=== PATIENT | female | born 1950 | race Caucasian/White ===

== ENCOUNTER 2023-05-23 17:31 | Inpatient (IN) ==
[2023-05-23] MEDS ORDERED: Rocuronium 50 mg VIAL 10 mg/ml 5 ml VIAL (50 mg) ONE (17:38)
[2023-05-23] MEDS ORDERED: Succinylcholine 200 mg VIAL 20 mg/ml 10 ml VIAL (200 mg) ONE (17:38)
[2023-05-23] MEDS ORDERED: LORazepam 2 mg VIAL 1 ml ONE (17:39)
[2023-05-23 17:53] LABS: Venous Bicarbonate HCO3 9.5 mmol/L (24-28)
[2023-05-23] MEDS ORDERED: LORazepam 2 mg VIAL 1 ml IV PUSH ONE (18:01)
[2023-05-23 18:02] LABS: Hemoglobin 16.1 g/dL (11.5-14.3); Mean Corpuscular Hemoglobin 28.6 pg (27-33); Mean Corpuscular Hgb Conc 30.4 g/dL (31-36); Mean Platelet Volume 9.5 fL (7.5-11.2); Platelet Count 232 10^3/uL (150-450); Red Blood Count 5.64 10^6/uL (3.63-4.92); Red Cell Distribution Width 15.4 % (12-17); White Blood Count 22.8 10^3/uL (3.8-11.8)
[2023-05-23] MEDS ORDERED: Lactated Ringers 1000 ml BAG 1,000 ML IV ONE (18:06)
[2023-05-23] MEDS ORDERED: Piperacillin/Tazobac 3.375 BAG 3.375 GM/100 ML BAG IV ONE (18:19)
[2023-05-23 18:21] LABS: Urine Appearance Cloudy; Urine Bilirubin Negative (Negative); Urine Blood 1+ (Negative); Urine Color Yellow; Urine Glucose 3+(>=500 mg/dL) (Negative); Urine Ketones 2+ (Negative); Urine Nitrite Negative (Negative); Urine Protein 1+(30 mg/dL) (Negative); Urine Specific Gravity 1.025 (1.002-1.030); Urine Urobilinogen Negative (Negative)
[2023-05-23 18:28] LABS: Urine Amorphous Crystals Present /HPF (Absent); Urine Bacteria Absent (Absent); Urine Red Blood Cell Trace(0-2/hpf) (Absent); Urine Squamous Epithelial Cell Present (Absent); Urine White Blood Cell Trace(0-5/hpf) (Absent)
[2023-05-23] MEDS: Dexmedetomidine 1,000 MCG in NS 0.9% 250 ml 240 ML IV SCH (18:35)
[2023-05-23 18:43] LABS: Alcohol, S < 13 mg/dL (<13); Salicylate < 2.50 mg/dL (<30)
[2023-05-23 18:52] LABS: ABS Basophils 0.1 10^3/uL (0.0-0.1); ABS Lymphocytes 1.2 10^3/uL (1.0-4.8); ABS Monocytes 1.4 10^3/uL (0.0-0.9); ABS Neutrophils 20.1 10^3/uL (1.5-7.6); ABS Nucleated RBC 0.02 10^3/ul; Eosinophil % 0.1 %; Lymphocyte % 5.1 %; Nucleated Red Blood Cells % 0.1 %/100WBC (0.0-0.8)
[2023-05-23 18:59] LABS: PCO2 Arterial 22 mmHg (35-45); PO2 Arterial 152 mmHg (80-100)
[2023-05-23 18:59] LABS: TSH Ultra Thyroid Stim Horm 3.17 mcIU/mL (0.34-5.60)
[2023-05-23 19:46] LABS: Urine Benzodiazepine Screen None Detected (None Detect); Urine Cannabinoids Screen None Detected (None Detect); Urine Opiates Screen None Detected (None Detect)
[2023-05-23 20:01] LABS: ALT 179 U/L (7-52); Albumin 4.2 g/dL (3.2-5.2); Albumin/Globulin Ratio 1.3 (1-3); Alkaline Phosphatase 176 U/L (35-149); Blood Urea Nitrogen 30 mg/dL (6-24); C Reactive Protein 59.55 mg/L (<8.01); Calcium 10.4 mg/dL (8.6-10.3); Chloride 99 mmol/L (101-111); Creatine Kinase 61 U/L (10-223); Creatinine, Serum 1.53 mg/dL (0.51-0.95); Globulin 3.3 g/dL (2-4); Sodium 143 mmol/L (135-145); Total Bilirubin 0.6 mg/dL (0.2-1.0); Total Protein 7.5 g/dL (6.4-8.9); eGFR CKD-EPI 36.4 (>60)
[2023-05-23 20:02] LABS: High Sens Troponin Baseline 298 pg/mL (<15)
[2023-05-23 20:05] LABS: Anion Gap 34 mmol/L (2-16); CO2 Carbon Dioxide 10 mmol/L (22-32); Glucose 742 mg/dL (70-100)
[2023-05-23] MEDS ORDERED: NORMOSOL-R pH 7.4 1000 mL BAG 1,000 ML IV ONE (20:07)
[2023-05-23] MEDS ORDERED: Iodixanol (CONTRAST) 320 MG/ML 100 ML SDV IV ONE (20:13)
[2023-05-23] MEDS ORDERED: Dextrose 50% Syringe 50 ml 25 GM/50 ML SYRINGE IV PUSH PRN (20:38)
[2023-05-23] MEDS ORDERED: Acetaminophen IV 1 GM/100ML 1,000 MG/100 ML BAG IV ONE (20:40)
[2023-05-23] MEDS ORDERED: Ondansetron 4 mg VIAL 2 MG/ML 2 ml VIAL IV PRN (20:44)
[2023-05-23 21:00] LABS: Magnesium 2.3 mg/dL (1.9-2.7); Potassium Redraw 5.2 mmol/L (3.5-5.0)
[2023-05-23] MEDS ORDERED: Insulin Infusion 100unit/100mL 100 UNIT/100 ML BAG IV SCH (21:00)
[2023-05-23] MEDS ORDERED: Enoxaparin 40 MG/0.4 ML SYR SUBCUT SCH (21:00)
[2023-05-23 21:24] LABS: High Sensitivity Troponin 1 Hr 471 pg/mL (<15)
[2023-05-23] MEDS: NORMOSOL-R pH 7.4 1000 mL BAG 1,000 ML IV SCH (21:33)
[2023-05-23] MEDS: Norepinephrine 4 MG/250mL D5W 4,000 MCG/250 ML BAG IV SCH (23:05)
[2023-05-23] MEDS ORDERED: Zosyn per Pharmacy NOTE FOLLOW UP SCH (23:45)
[2023-05-24 00:08] LABS: Osmolality Serum 352 mOsm/kg (275-295)
[2023-05-24 00:25] LABS: PCO2 Arterial 27 mmHg (35-45); PO2 Arterial 80 mmHg (80-100)
[2023-05-24] MEDS ORDERED: LORazepam 2 mg VIAL 1 ml IV PUSH ONE (00:43)
[2023-05-24] MEDS ORDERED: Lorazepam PYXIS KEY PRN (00:43)
[2023-05-24] MEDS ORDERED: Heparin 5000 UNITS/ML 1 mL VIAL IV SCH (01:00)
[2023-05-24] MEDS ORDERED: Heparin DRIP 25,000 UNITS BAG 25,000 UNITS/250 ML BAG IV SCH (01:00)
[2023-05-24] MEDS ORDERED: ZOSYN 3.375 GM x ONE DOSE over 30 miuntes IV (01:00)
[2023-05-24] MEDS ORDERED: NORMOSOL-R pH 7.4 1000 mL BAG 1,000 ML IV ONE (01:07)
[2023-05-24 01:18] LABS: ABS Lymphocytes 1.2 10^3/uL (1.0-4.8); ABS Monocytes 1.5 10^3/uL (0.0-0.9); ABS Neutrophils 15.5 10^3/uL (1.5-7.6); ABS Nucleated RBC 0.02 10^3/ul; Hematocrit 41.6 % (35-45); Hemoglobin 13.8 g/dL (11.5-14.3); Lymphocyte % 6.6 %; Mean Corpuscular Hemoglobin 28.4 pg (27-33); Mean Corpuscular Hgb Conc 33.2 g/dL (31-36); Mean Corpuscular Volume 85.7 fL (80-97); Mean Platelet Volume 8.8 fL (7.5-11.2); Nucleated Red Blood Cells % 0.1 %/100WBC (0.0-0.8); Platelet Count 172 10^3/uL (150-450); Red Blood Count 4.86 10^6/uL (3.63-4.92); Red Cell Distribution Width 13.8 % (12-17); White Blood Count 18.3 10^3/uL (3.8-11.8)
[2023-05-24 01:28] LABS: Creatinine, Serum 1.73 mg/dL (0.51-0.95); eGFR CKD-EPI 31.2 (>60)
[2023-05-24 01:40] LABS: Calcium 9.1 mg/dL (8.6-10.3); Creatinine, Serum 1.76 mg/dL (0.51-0.95); Phosphorus 1.8 mg/dL (2.5-5.0); Potassium 3.8 mmol/L (3.5-5.0); eGFR CKD-EPI 30.6 (>60)
[2023-05-24] MEDS ORDERED: Potassium Phosphate IV 30 MMOL in NS 0.9% 250 ml 250 ML IVPB ONE (01:54)
[2023-05-24 02:07] LABS: CSF Glucose 324 mg/dL (40-70)
[2023-05-24 02:27] LABS: Glucose Confirmatory 468 mg/dL (70-100)
[2023-05-24 02:52] LABS: Body Fluid Source Cerebral Spinal
[2023-05-24 02:53] LABS: Body Fluid Appearance Clear; Body Fluid Color Colorless; CSF Tube # 4
[2023-05-24] MEDS: NORMOSOL-R pH 7.4 1000 mL BAG 1,000 ML IV SCH (02:57)
[2023-05-24 03:09] LABS: CSF Body Fluid WBC 2 /mcL
[2023-05-24 03:35] LABS: Activated Partial Thrombo Time 30.7 seconds (26.0-38.0); INR 1.25 (0.83-1.13)
[2023-05-24] MEDS: Acetaminophen IV 1 GM/100ML 1,000 MG/100 ML BAG IV SCH ×4 (03:50→20:53)
[2023-05-24] MEDS: Heparin DRIP 25,000 UNITS BAG 25,000 UNITS/250 ML BAG IV SCH (03:56)
[2023-05-24 04:32] LABS: Body Fluid Mono 46 %; Body Fluid Total Cells Counted 174
[2023-05-24] MEDS ORDERED: ZOSYN 3.375 GM Q8H per EXTENDED INFUSION IV SCH ×2 (05:00)
[2023-05-24 05:05] LABS: Schistocytes ABSENT
[2023-05-24 05:10] LABS: Hematocrit 40.8 % (35-45); Hemoglobin 13.4 g/dL (11.5-14.3); Mean Corpuscular Hemoglobin 28.2 pg (27-33); Mean Corpuscular Volume 85.5 fL (80-97); Mean Platelet Volume 8.5 fL (7.5-11.2); Platelet Count 155 10^3/uL (150-450); Red Blood Count 4.77 10^6/uL (3.63-4.92); Red Cell Distribution Width 13.5 % (12-17); White Blood Count 16.8 10^3/uL (3.8-11.8)
[2023-05-24 05:17] LABS: PCO2 Arterial 28 mmHg (35-45); PO2 Arterial 75 mmHg (80-100)
[2023-05-24] MEDS: ZOSYN 3.375 GM Q8H per EXTENDED INFUSION IV SCH ×3 (05:26→22:17)
[2023-05-24 05:28] LABS: Creatinine, Serum 1.62 mg/dL (0.51-0.95); Magnesium 2.1 mg/dL (1.9-2.7); Potassium 3.9 mmol/L (3.5-5.0); eGFR CKD-EPI 33.8 (>60)
[2023-05-24] MEDS ORDERED: KCL 20 MEQ/100 ML IVPREMIX 20 MEQ/100 ML BAG IV ONE (05:49)
[2023-05-24] MEDS ORDERED: D5W 1/2 NS 1000 ml BAG 1,000 ML IV ONE (05:55)
[2023-05-24] MEDS ORDERED: D5W 1/2 NS 1000 ml BAG 1,000 ML IV SCH (06:00)
[2023-05-24] MEDS: Insulin Infusion 100unit/100mL 100 UNIT/100 ML BAG IV SCH ×2 (06:08→08:59)
[2023-05-24] MEDS: Dexmedetomidine 1,000 MCG in NS 0.9% 250 ml 240 ML IV SCH ×3 (06:17→22:19)
[2023-05-24] MEDS ORDERED: Vancomycin 1,000 MG in NS 0.9% 250 ml 250 ML IVPB ONE (07:48)
[2023-05-24 08:00] LABS: Platelet Count 172 10^3/ul (150-450)
[2023-05-24] MEDS ORDERED: Vancomycin per Pharmacy 1 EA NOTE FOLLOW UP SCH (08:00)
[2023-05-24 08:09] LABS: ABS Basophils 0.1 10^3/uL (0.0-0.1); ABS Lymphocytes 1.6 10^3/uL (1.0-4.8); ABS Monocytes 1.6 10^3/uL (0.0-0.9); ABS Neutrophils 13.5 10^3/uL (1.5-7.6); ABS Nucleated RBC 0.01 10^3/ul; Lymphocyte % 9.8 %; Nucleated Red Blood Cells % 0.1 %/100WBC (0.0-0.8)
[2023-05-24] MEDS: Norepinephrine 4 MG/250mL D5W 4,000 MCG/250 ML BAG IV SCH ×3 (08:29→22:00)
[2023-05-24] MEDS: Vancomycin 1,500 MG in NS 0.9% 250 ml 250 ML IVPB ONE ×2 (08:38→09:08)
[2023-05-24] MEDS ORDERED: NORMOSOL-R pH 7.4 1000 mL BAG 1,000 ML IV SCH (09:00)
[2023-05-24 10:54] LABS: Creatinine, Serum 1.53 mg/dL (0.51-0.95); Potassium 4.6 mmol/L (3.5-5.0); eGFR CKD-EPI 36.2 (>60)
[2023-05-24 10:55] LABS: Calcium 8.6 mg/dL (8.6-10.3)
[2023-05-24 12:59] LABS: Calcium 8.6 mg/dL (8.6-10.3); Creatinine, Serum 1.62 mg/dL (0.51-0.95); Potassium 3.7 mmol/L (3.5-5.0); eGFR CKD-EPI 33.8 (>60)
[2023-05-24] MEDS: D5LR 1000 ml BAG 1,000 ML IV SCH ×2 (13:33→22:15)
[2023-05-24] MEDS ORDERED: D5LR 1000 ml BAG 1,000 ML IV ONE (15:02)
[2023-05-24] MEDS ORDERED: Lactated Ringers 1000 ml BAG 1,000 ML IV ONE (15:16)
[2023-05-24] MEDS ORDERED: Insulin Infusion 100unit/100mL 100 UNIT/100 ML BAG IV SCH (15:16)
[2023-05-24 16:31] LABS: Calcium (PTH Intact) 8.7 mg/dL (8.6-10.3)
[2023-05-24 16:45] LABS: Calcium 8.8 mg/dL (8.6-10.3); Creatinine, Serum 1.58 mg/dL (0.51-0.95); Magnesium 1.8 mg/dL (1.9-2.7); Potassium 3.8 mmol/L (3.5-5.0); eGFR CKD-EPI 34.8 (>60)
[2023-05-24 17:26] LABS: Calcium 8.8 mg/dL (8.6-10.3); Creatinine, Serum 1.63 mg/dL (0.51-0.95); Magnesium 1.9 mg/dL (1.9-2.7); eGFR CKD-EPI 33.5 (>60)
[2023-05-24 17:34] LABS: Free T4 1.16 ng/dL (0.61-1.12)
[2023-05-24 17:59] LABS: Resp Rate 19
[2023-05-24 18:02] LABS: PCO2 Arterial 28 mmHg (35-45); PO2 Arterial 62 mmHg (80-100)
[2023-05-24] MEDS ORDERED: CALCIUM GLUCONATE 1GM/50ML NS 1 GM/50 ML BAG IV ONE (19:19)
[2023-05-24] MEDS ORDERED: Haloperidol 5 mg/ml SDV IV/IM 5 MG/ML AMP IV SLOW PU PRN (19:34)
[2023-05-24] MEDS ORDERED: Haloperidol 5 mg/ml SDV IV/IM 5 MG/ML AMP ONE (19:38)
[2023-05-24 21:13] LABS: Calcium 8.8 mg/dL (8.6-10.3); Creatinine, Serum 1.51 mg/dL (0.51-0.95); Magnesium 1.7 mg/dL (1.9-2.7); Potassium 3.6 mmol/L (3.5-5.0); eGFR CKD-EPI 36.7 (>60)
[2023-05-24] MEDS ORDERED: fentaNYL 100 mcg/2 ml 50 MCG/ML VIAL IV SLOW PU ONE (22:10)
[2023-05-24] MEDS ORDERED: fentaNYL 100 mcg/2 ml 50 MCG/ML VIAL ONE (22:14)
[2023-05-24] MEDS: Insulin GLARGINE 100 un/ml 10 ml VIAL SUBCUT SCH (22:43)
[2023-05-24 23:12] LABS: PCO2 Arterial 30 mmHg (35-45); PO2 Arterial 83 mmHg (80-100)
[2023-05-24] MEDS ORDERED: Dextrose 50% Syringe 50 ml 25 GM/50 ML SYRINGE IV PUSH PRN (23:13)
[2023-05-25] MEDS: Heparin DRIP 25,000 UNITS BAG 25,000 UNITS/250 ML BAG IV SCH (01:26)
[2023-05-25] MEDS ORDERED: Ketamine HCL 50 mg/ml 10 ml VIAL (500 MG) ONE (01:58)
[2023-05-25] MEDS ORDERED: Rocuronium 50 mg VIAL 10 mg/ml 5 ml VIAL (50 mg) ONE ×2 (01:58→02:12)
[2023-05-25] MEDS ORDERED: Etomidate 40 mg/20 ml (2 MG/ML) 20 ml VIAL (40 mg) ONE (02:02)
[2023-05-25 02:11] LABS: PCO2 Arterial 28 mmHg (35-45); PO2 Arterial 131 mmHg (80-100)
[2023-05-25] MEDS ORDERED: Midazolam PREMIXBAG 1 MG/ML NS 100 ML IV ONE (02:24)
[2023-05-25] MEDS ORDERED: Rocuronium 50 mg VIAL 10 mg/ml 5 ml VIAL (50 mg) IV ONE (02:33)
[2023-05-25] MEDS ORDERED: Etomidate 20 mg/10 ml 2 MG/ML 10 ml VIAL IV ONE (02:33)
[2023-05-25] MEDS ORDERED: Midazolam PREMIXBAG 1 MG/ML NS 100 ML IV SCH ×2 (02:35→13:14)
[2023-05-25] MEDS: Pantoprazole VIAL 40 MG VIAL IV SCH (02:56)
[2023-05-25] MEDS: Acetaminophen IV 1 GM/100ML 1,000 MG/100 ML BAG IV SCH (02:58)
[2023-05-25] MEDS ORDERED: fentaNYL INFUSION 50 mcg/mL VL 2,500 MCG/50 ML VIAL IV SCH ×2 (03:00→13:14)
[2023-05-25 03:46] LABS: PCO2 Arterial 35 mmHg (35-45); PO2 Arterial 121 mmHg (80-100)
[2023-05-25 04:07] LABS: Hematocrit 44.1 % (35-45); Hemoglobin 14.1 g/dL (11.5-14.3); Mean Corpuscular Hemoglobin 28.4 pg (27-33); Mean Corpuscular Volume 88.6 fL (80-97); Mean Platelet Volume 9.4 fL (7.5-11.2); Platelet Count 163 10^3/uL (150-450); Red Blood Count 4.98 10^6/uL (3.63-4.92); Red Cell Distribution Width 14.8 % (12-17); White Blood Count 24.3 10^3/uL (3.8-11.8)
[2023-05-25 04:33] LABS: Calcium 9.6 mg/dL (8.6-10.3); Creatinine, Serum 1.83 mg/dL (0.51-0.95); Potassium 4.2 mmol/L (3.5-5.0); eGFR CKD-EPI 29.2 (>60)
[2023-05-25 04:45] LABS: Albumin 3.3 g/dL (3.2-5.2); Albumin/Globulin Ratio 1.4 (1-3); Globulin 2.4 g/dL (2-4); Magnesium 1.9 mg/dL (1.9-2.7); Phosphorus 6.4 mg/dL (2.5-5.0); Total Bilirubin 1.7 mg/dL (0.2-1.0); Total Protein 5.7 g/dL (6.4-8.9)
[2023-05-25 04:55] LABS: ABS Basophils 0.1 10^3/uL (0.0-0.1); ABS Monocytes 2.7 10^3/uL (0.0-0.9); ABS Neutrophils 19.4 10^3/uL (1.5-7.6); ABS Nucleated RBC 0.01 10^3/ul; Eosinophil % 0.1 %; Lymphocyte % 8.4 %
[2023-05-25] MEDS: Norepinephrine 4 MG/250mL D5W 4,000 MCG/250 ML BAG IV SCH ×3 (05:04→20:26)
[2023-05-25] MEDS: Hydrocortisone INJ 100 MG/2ML 2 ML VIAL IV SCH ×4 (05:58→23:19)
[2023-05-25] MEDS: ZOSYN 3.375 GM Q8H per EXTENDED INFUSION IV SCH ×3 (05:59→22:01)
[2023-05-25] MEDS: Vancomycin 1000 MG in NS 0.9% 250 ML IVPB SCH (08:10)
[2023-05-25] MEDS ORDERED: Propofol 10 mg/ml 100 ML BTL 1,000 MG/100 ML BTL IV SCH (10:00)
[2023-05-25] MEDS ORDERED: Norepinephrine 4 MG/250mL D5W 4,000 MCG/250 ML BAG IV ONE (10:01)
[2023-05-25] MEDS ORDERED: Acetaminophen IV 1 GM/100ML 1,000 MG/100 ML BAG IV ONE (11:21)
[2023-05-25 12:35] LABS: Resp Rate 20
[2023-05-25 12:37] LABS: PCO2 Arterial 28 mmHg (35-45); PO2 Arterial 76 mmHg (80-100)
[2023-05-25] MEDS: Propofol 10 mg/ml 100 ML BTL 1,000 MG/100 ML BTL IV SCH (13:51)
[2023-05-25 14:11] LABS: Anion Gap 11 mmol/L (2-16); Blood Urea Nitrogen 37 mg/dL (6-24); CO2 Carbon Dioxide 20 mmol/L (22-32); Calcium 8.5 mg/dL (8.6-10.3); Chloride 109 mmol/L (101-111); Creatinine, Serum 2.15 mg/dL (0.51-0.95); Glucose 282 mg/dL (70-100); Sodium 140 mmol/L (135-145)
[2023-05-25 14:12] LABS: Albumin 2.9 g/dL (3.2-5.2); Albumin/Globulin Ratio 1.3 (1-3); Alkaline Phosphatase 126 U/L (35-149); Globulin 2.2 g/dL (2-4); Total Bilirubin 1.2 mg/dL (0.2-1.0); Total Protein 5.1 g/dL (6.4-8.9)
[2023-05-25] MEDS: Chlorhexidine MOUTHWASH 0.12% 15 ML UDC SWISH SPIT SCH ×3 (14:17→22:03)
[2023-05-25 16:02] LABS: ALT 2565 U/L (7-52)
[2023-05-25 16:50] LABS: Potassium Redraw 4.5 mmol/L (3.5-5.0)
[2023-05-25 17:32] LABS: Folate 8.11 ng/mL (5.90-24.80)
[2023-05-25 17:33] LABS: Vitamin B12 > 1450 pg/mL (180-914)
[2023-05-25 19:13] LABS: HSV 1 PCR, CSF Negative (Negative); HSV 2 PCR, CSF Negative (Negative)
[2023-05-25] MEDS: Insulin GLARGINE 100 un/ml 10 ml VIAL SUBCUT SCH (20:34)
[2023-05-25 22:27] LABS: Hematocrit 40.4 % (35-45); Hemoglobin 13.1 g/dL (11.5-14.3)
[2023-05-26] MEDS: Chlorhexidine MOUTHWASH 0.12% 15 ML UDC SWISH SPIT SCH ×7 (02:17→23:42)
[2023-05-26] MEDS: Pantoprazole VIAL 40 MG VIAL IV SCH (02:21)
[2023-05-26 05:51] LABS: ABS Basophils 0.1 10^3/uL (0.0-0.1); ABS Lymphocytes 2.7 10^3/uL (1.0-4.8); ABS Neutrophils 16.4 10^3/uL (1.5-7.6); ABS Nucleated RBC 0.02 10^3/ul; Hematocrit 38.8 % (35-45); Hemoglobin 12.9 g/dL (11.5-14.3); Lymphocyte % 13.2 %; Mean Corpuscular Hemoglobin 28.3 pg (27-33); Mean Corpuscular Hgb Conc 33.1 g/dL (31-36); Mean Corpuscular Volume 85.3 fL (80-97); Mean Platelet Volume 9.8 fL (7.5-11.2); Nucleated Red Blood Cells % 0.1 %/100WBC (0.0-0.8); Platelet Count 118 10^3/uL (150-450); Red Blood Count 4.55 10^6/uL (3.63-4.92); Red Cell Distribution Width 14.2 % (12-17); White Blood Count 20.2 10^3/uL (3.8-11.8)
[2023-05-26] MEDS: Hydrocortisone INJ 100 MG/2ML 2 ML VIAL IV SCH (06:03)
[2023-05-26 06:05] LABS: Calcium 8.7 mg/dL (8.6-10.3); Creatinine, Serum 2.22 mg/dL (0.51-0.95); Potassium 3.4 mmol/L (3.5-5.0); eGFR CKD-EPI 23.1 (>60)
[2023-05-26 06:07] LABS: Albumin 2.7 g/dL (3.2-5.2); Albumin/Globulin Ratio 1.2 (1-3); Globulin 2.2 g/dL (2-4); Magnesium 1.9 mg/dL (1.9-2.7); Phosphorus 3.7 mg/dL (2.5-5.0); Total Bilirubin 0.8 mg/dL (0.2-1.0); Total Protein 4.9 g/dL (6.4-8.9)
[2023-05-26] MEDS: ZOSYN 3.375 GM Q8H per EXTENDED INFUSION IV SCH ×3 (06:08→23:42)
[2023-05-26] MEDS ORDERED: Potassium Chloride LIQUID 20 MEQ/15 ML LIQUID PO ONE (06:31)
[2023-05-26] MEDS: Propofol 10 mg/ml 100 ML BTL 1,000 MG/100 ML BTL IV SCH ×2 (07:49→17:55)
[2023-05-26] MEDS ORDERED: Potassium Chloride LIQUID 20 MEQ/15 ML LIQUID NG TUBE ONE (08:00)
[2023-05-26] MEDS: Vancomycin 1000 MG in NS 0.9% 250 ML IVPB SCH (09:00)
[2023-05-26] MEDS: Heparin DRIP 25,000 UNITS BAG 25,000 UNITS/250 ML BAG IV SCH (10:11)
[2023-05-26 14:45] LABS: CSF VDRL Negative (Negative)
[2023-05-26] MEDS: fentaNYL 100 mcg/2 ml 50 MCG/ML VIAL IV SLOW PU PRN (21:06)
[2023-05-26] MEDS: Insulin GLARGINE 100 un/ml 10 ml VIAL SUBCUT SCH (22:26)
[2023-05-27] MEDS: fentaNYL 100 mcg/2 ml 50 MCG/ML VIAL IV SLOW PU PRN ×3 (01:48→19:30)
[2023-05-27] MEDS: Pantoprazole VIAL 40 MG VIAL IV SCH (01:48)
[2023-05-27 04:23] LABS: Hematocrit 34.2 % (35-45); Hemoglobin 11.6 g/dL (11.5-14.3); Mean Corpuscular Hemoglobin 28.7 pg (27-33); Mean Corpuscular Hgb Conc 33.8 g/dL (31-36); Mean Corpuscular Volume 84.8 fL (80-97); Red Blood Count 4.03 10^6/uL (3.63-4.92); Red Cell Distribution Width 14.2 % (12-17); White Blood Count 14.3 10^3/uL (3.8-11.8)
[2023-05-27 04:27] LABS: ABS Basophils 0.1 10^3/uL (0.0-0.1); ABS Eosinophils 0.1 10^3/uL (0.0-0.5); ABS Lymphocytes 2.7 10^3/uL (1.0-4.8); ABS Monocytes 0.9 10^3/uL (0.0-0.9); ABS Neutrophils 10.6 10^3/uL (1.5-7.6); ABS Nucleated RBC 0.05 10^3/ul; Eosinophil % 0.5 %; Lymphocyte % 18.7 %; Nucleated Red Blood Cells % 0.3 %/100WBC (0.0-0.8)
[2023-05-27 04:39] LABS: Calcium 8.4 mg/dL (8.6-10.3); Creatinine, Serum 1.86 mg/dL (0.51-0.95); eGFR CKD-EPI 28.6 (>60)
[2023-05-27 05:09] LABS: Mean Platelet Volume 9.5 fL (7.5-11.2); Platelet Count 95 10^3/uL (150-450)
[2023-05-27 05:19] LABS: Albumin 2.5 g/dL (3.2-5.2); Albumin/Globulin Ratio 1.2 (1-3); Globulin 2.1 g/dL (2-4); Magnesium 1.9 mg/dL (1.9-2.7); Phosphorus 2.9 mg/dL (2.5-5.0); Total Bilirubin 0.8 mg/dL (0.2-1.0); Total Protein 4.6 g/dL (6.4-8.9)
[2023-05-27] MEDS: Propofol 10 mg/ml 100 ML BTL 1,000 MG/100 ML BTL IV SCH (05:24)
[2023-05-27] MEDS: ZOSYN 3.375 GM Q8H per EXTENDED INFUSION IV SCH (06:52)
[2023-05-27] MEDS: Chlorhexidine MOUTHWASH 0.12% 15 ML UDC SWISH SPIT SCH ×6 (06:58→23:45)
[2023-05-27] MEDS: KCL 20 MEQ/100 ML IVPREMIX 20 MEQ/100 ML BAG IV SCH ×2 (07:13→09:59)
[2023-05-27] MEDS ORDERED: Vancomycin Trough Check NOTE FOLLOW UP ONE (08:30)
[2023-05-27] MEDS ORDERED: Furosemide 40 mg/4 ml IV VIAL IV SLOW PU ONE (10:00)
[2023-05-27] MEDS ORDERED: Midazolam 5 mg/5 ml VIAL 1 mg/ml 5 ml VIAL (5 mg) ONE (10:29)
[2023-05-27] MEDS ORDERED: fentaNYL 100 mcg/2 ml 50 MCG/ML VIAL ONE (10:29)
[2023-05-27] MEDS ORDERED: Naloxone 0.4 mg VIAL 0.4 mg/ml 1 ml VIAL ONE (10:30)
[2023-05-27] MEDS ORDERED: Flumazenil 0.5 mg/5 ml 0.1 MG/ML 5 ml VIAL ONE (10:30)
[2023-05-27] MEDS: Enoxaparin 100 MG/ML SYR SUBCUT SCH ×2 (11:08→21:57)
[2023-05-27] MEDS: cefTRIAXone 1 gm/50 mL D5W 1 GM/50 ML BAG IV SCH (12:38)
[2023-05-27] MEDS ORDERED: hydrALAZINE 20 mg/ml 1 ML Vial IV IV SLOW PU PRN (14:35)
[2023-05-27 16:17] LABS: Calcium 8.9 mg/dL (8.6-10.3); Creatinine, Serum 1.76 mg/dL (0.51-0.95); Magnesium 1.8 mg/dL (1.9-2.7); Phosphorus 2.4 mg/dL (2.5-5.0); Potassium 3.5 mmol/L (3.5-5.0); eGFR CKD-EPI 30.6 (>60)
[2023-05-27] MEDS ORDERED: KCL 20 MEQ/100 ML IVPREMIX 20 MEQ/100 ML BAG IV ONE (16:42)
[2023-05-27] MEDS: Dexmedetomidine 1,000 MCG in NS 0.9% 250 ml 240 ML IV SCH (17:25)
[2023-05-27] MEDS: Insulin GLARGINE 100 un/ml 10 ml VIAL SUBCUT SCH (21:56)
[2023-05-27] MEDS ORDERED: Lorazepam PYXIS KEY PRN (22:12)
[2023-05-27] MEDS ORDERED: LORazepam 2 mg VIAL 1 ml IV PUSH PRN (22:12)
[2023-05-27] MEDS ORDERED: NS 0.9% 250 ml 250 ML IV ONE (22:43)
[2023-05-28] MEDS: LORazepam 2 mg VIAL 1 ml IV PUSH PRN (02:14)
[2023-05-28] MEDS: Pantoprazole VIAL 40 MG VIAL IV SCH (02:33)
[2023-05-28] MEDS: Chlorhexidine MOUTHWASH 0.12% 15 ML UDC SWISH SPIT SCH ×5 (05:03→20:43)
[2023-05-28 05:38] LABS: Hematocrit 32.6 % (35-45); Hemoglobin 10.7 g/dL (11.5-14.3); Mean Corpuscular Hemoglobin 28.2 pg (27-33); Mean Corpuscular Volume 85.7 fL (80-97); Mean Platelet Volume 9.2 fL (7.5-11.2); Platelet Count 97 10^3/uL (150-450); Red Cell Distribution Width 14.1 % (12-17); White Blood Count 11.5 10^3/uL (3.8-11.8)
[2023-05-28 05:47] LABS: Calcium 8.7 mg/dL (8.6-10.3); Creatinine, Serum 1.54 mg/dL (0.51-0.95); Potassium 3.1 mmol/L (3.5-5.0); eGFR CKD-EPI 35.9 (>60)
[2023-05-28 06:14] LABS: Albumin 2.8 g/dL (3.2-5.2); Albumin/Globulin Ratio 1.2 (1-3); Globulin 2.3 g/dL (2-4); Magnesium 1.6 mg/dL (1.9-2.7); Phosphorus 1.7 mg/dL (2.5-5.0); Total Protein 5.1 g/dL (6.4-8.9)
[2023-05-28 07:25] LABS: ABS Lymphocytes 1.4 10^3/uL (1.0-4.8); ABS Monocytes 1.3 10^3/uL (0.0-0.9); ABS Neutrophils 8.7 10^3/uL (1.5-7.6); ABS Nucleated RBC 0.04 10^3/ul; Eosinophil % 0.2 %; Lymphocyte % 12.5 %; Nucleated Red Blood Cells % 0.3 %/100WBC (0.0-0.8)
[2023-05-28 07:26] LABS: Acanthocytes 1+; Polychromasia 1+
[2023-05-28] MEDS ORDERED: Magnesium Sulf 4 GM/100 ML IV 4,000 MG/100 ML BAG IVPB ONE (08:00)
[2023-05-28] MEDS: cefTRIAXone 1 gm/50 mL D5W 1 GM/50 ML BAG IV SCH (09:56)
[2023-05-28] MEDS: Enoxaparin 100 MG/ML SYR SUBCUT SCH ×2 (09:57→21:22)
[2023-05-28] MEDS ORDERED: Potassium Phosphate IV 15 MMOL in NS 0.9% 250 ml 250 ML IVPB ONE (10:00)
[2023-05-28] MEDS: Dexmedetomidine 1,000 MCG in NS 0.9% 250 ml 240 ML IV SCH (12:15)
[2023-05-28] MEDS ORDERED: EPINEPHrine SYR 0.1MG/ML 10 ml SYRINGE IV ONE (15:31)
[2023-05-28] MEDS ORDERED: Sodium Bicarbonate 8.4% SYR 50 ml SYRINGE ONE (15:31)
[2023-05-28] MEDS ORDERED: Norepinephrine 4 MG/250mL D5W 4,000 MCG/250 ML BAG IV ONE (15:35)
[2023-05-28] MEDS ORDERED: Propofol 10 mg/ml 100 ML BTL 1,000 MG/100 ML BTL ONE (15:38)
[2023-05-28] MEDS: Propofol 10 mg/ml 100 ML BTL 1,000 MG/100 ML BTL IV SCH ×2 (15:50→22:35)
[2023-05-28] MEDS ORDERED: Iodixanol (CONTRAST) 320 MG/ML 100 ML SDV IV ONE (15:57)
[2023-05-28] MEDS ORDERED: D5W IV SCH ×2 (16:00)
[2023-05-28] MEDS ORDERED: Norepinephrine 4 MG/250mL D5W 4,000 MCG/250 ML BAG IV SCH (16:00)
[2023-05-28] MEDS ORDERED: 1/2 NS IV SCH ×2 (16:00)
[2023-05-28 16:06] LABS: Hematocrit 33.1 % (35-45); Hemoglobin 10.9 g/dL (11.5-14.3); Mean Corpuscular Hemoglobin 28.3 pg (27-33); Mean Corpuscular Hgb Conc 32.9 g/dL (31-36); Mean Corpuscular Volume 85.9 fL (80-97); Mean Platelet Volume 9.2 fL (7.5-11.2); Platelet Count 104 10^3/uL (150-450); Red Blood Count 3.85 10^6/uL (3.63-4.92); Red Cell Distribution Width 14.4 % (12-17); White Blood Count 14.4 10^3/uL (3.8-11.8)
[2023-05-28 16:20] LABS: Activated Partial Thrombo Time 35.2 seconds (26.0-38.0); INR 1.06 (0.83-1.13)
[2023-05-28 16:24] LABS: Resp Rate 27
[2023-05-28 16:25] LABS: Calcium 8.6 mg/dL (8.6-10.3); Creatinine, Serum 1.47 mg/dL (0.51-0.95); Potassium 3.2 mmol/L (3.5-5.0); eGFR CKD-EPI 37.9 (>60)
[2023-05-28 16:26] LABS: PCO2 Arterial 33 mmHg (35-45); PO2 Arterial 66 mmHg (80-100)
[2023-05-28 16:40] LABS: ABS Eosinophils 0.1 10^3/uL (0.0-0.5); ABS Lymphocytes 2.8 10^3/uL (1.0-4.8); ABS Monocytes 1.3 10^3/uL (0.0-0.9); ABS Neutrophils 10.3 10^3/uL (1.5-7.6); ABS Nucleated RBC 0.12 10^3/ul; Eosinophil % 0.4 %; Lymphocyte % 19.3 %; Nucleated Red Blood Cells % 0.9 %/100WBC (0.0-0.8)
[2023-05-28 16:45] LABS: Albumin 2.7 g/dL (3.2-5.2); Albumin/Globulin Ratio 1.2 (1-3); Globulin 2.2 g/dL (2-4); Magnesium 2.7 mg/dL (1.9-2.7); Phosphorus 2.5 mg/dL (2.5-5.0); Total Protein 4.9 g/dL (6.4-8.9)
[2023-05-28] MEDS: KCL 20 MEQ/100 ML IVPREMIX 20 MEQ/100 ML BAG IV SCH ×4 (17:53→20:41)
[2023-05-28] MEDS: Albuterol/Ipratropium NEB.SOL (2.5/0.5 MG) 3 ML NEB.SOLN INH SCH (20:31)
[2023-05-28] MEDS: Acetylcysteine INHALATION SOL 200 MG/ML NEB.SOLN 10 ML INH SCH (20:32)
[2023-05-28] MEDS: Insulin GLARGINE 100 un/ml 10 ml VIAL SUBCUT SCH (21:22)
[2023-05-28] MEDS: fentaNYL 100 mcg/2 ml 50 MCG/ML VIAL IV SLOW PU PRN (23:11)
[2023-05-29] MEDS: Chlorhexidine MOUTHWASH 0.12% 15 ML UDC SWISH SPIT SCH ×7 (00:16→23:16)
[2023-05-29] MEDS: Albuterol/Ipratropium NEB.SOL (2.5/0.5 MG) 3 ML NEB.SOLN INH SCH ×4 (01:43→19:15)
[2023-05-29] MEDS: Acetylcysteine INHALATION SOL 200 MG/ML NEB.SOLN 10 ML INH SCH ×4 (01:45→19:16)
[2023-05-29] MEDS: LORazepam 2 mg VIAL 1 ml IV PUSH PRN (02:02)
[2023-05-29] MEDS: Pantoprazole VIAL 40 MG VIAL IV SCH (02:33)
[2023-05-29] MEDS: fentaNYL 100 mcg/2 ml 50 MCG/ML VIAL IV SLOW PU PRN ×2 (02:44→05:54)
[2023-05-29 04:55] LABS: PCO2 Arterial 33 mmHg (35-45); PO2 Arterial 104 mmHg (80-100)
[2023-05-29 05:02] LABS: Hematocrit 31.3 % (35-45); Hemoglobin 10.3 g/dL (11.5-14.3); Mean Corpuscular Hemoglobin 28.4 pg (27-33); Mean Platelet Volume 9.2 fL (7.5-11.2); Platelet Count 99 10^3/uL (150-450); Red Blood Count 3.64 10^6/uL (3.63-4.92); Red Cell Distribution Width 14.3 % (12-17); White Blood Count 11.5 10^3/uL (3.8-11.8)
[2023-05-29 05:15] LABS: Calcium 8.3 mg/dL (8.6-10.3); Creatinine, Serum 1.19 mg/dL (0.51-0.95); Potassium 3.1 mmol/L (3.5-5.0); eGFR CKD-EPI 48.9 (>60)
[2023-05-29 05:17] LABS: ABS Lymphocytes 1.5 10^3/uL (1.0-4.8); ABS Monocytes 1.1 10^3/uL (0.0-0.9); ABS Neutrophils 8.9 10^3/uL (1.5-7.6); ABS Nucleated RBC 0.02 10^3/ul; Eosinophil % 0.3 %; Nucleated Red Blood Cells % 0.2 %/100WBC (0.0-0.8); RBC Morphology Normal (Normal)
[2023-05-29 05:32] LABS: Albumin 2.6 g/dL (3.2-5.2); Albumin/Globulin Ratio 1.2 (1-3); Globulin 2.2 g/dL (2-4); Magnesium 2.2 mg/dL (1.9-2.7); Phosphorus 3.3 mg/dL (2.5-5.0); Total Protein 4.8 g/dL (6.4-8.9)
[2023-05-29] MEDS: Propofol 10 mg/ml 100 ML BTL 1,000 MG/100 ML BTL IV SCH ×5 (06:27→23:53)
[2023-05-29] MEDS ORDERED: Potassium Chloride LIQUID 20 MEQ/15 ML LIQUID NG TUBE ONE (07:18)
[2023-05-29] MEDS ORDERED: fentaNYL INFUSION 50 mcg/mL VL 2,500 MCG/50 ML VIAL IV SCH (09:00)
[2023-05-29] MEDS: Enoxaparin 100 MG/ML SYR SUBCUT SCH ×2 (10:25→21:05)
[2023-05-29] MEDS: cefTRIAXone 1 gm/50 mL D5W 1 GM/50 ML BAG IV SCH (10:25)
[2023-05-29 15:02] LABS: Calcium 8.6 mg/dL (8.6-10.3); Creatinine, Serum 1.17 mg/dL (0.51-0.95); Potassium 3.2 mmol/L (3.5-5.0); eGFR CKD-EPI 49.9 (>60)
[2023-05-29] MEDS ORDERED: Furosemide 40 mg/4 ml IV VIAL IV ONE (15:22)
[2023-05-29] MEDS: Potassium Chloride LIQUID 20 MEQ/15 ML LIQUID PO SCH ×2 (15:38→16:54)
[2023-05-29] MEDS: fentaNYL INFUSION 50 mcg/mL VL 2,500 MCG/50 ML VIAL IV SCH (17:17)
[2023-05-29] MEDS ORDERED: Norepinephrine 4 MG/250mL D5W 4,000 MCG/250 ML BAG IV ONE (18:58)
[2023-05-29] MEDS: Insulin GLARGINE 100 un/ml 10 ml VIAL SUBCUT SCH (21:05)
[2023-05-30] MEDS: Acetylcysteine INHALATION SOL 200 MG/ML NEB.SOLN 10 ML INH SCH ×3 (00:30→13:09)
[2023-05-30] MEDS: Albuterol/Ipratropium NEB.SOL (2.5/0.5 MG) 3 ML NEB.SOLN INH SCH ×3 (00:30→13:09)
[2023-05-30] MEDS: Norepinephrine 4 MG/250mL D5W 4,000 MCG/250 ML BAG IV SCH (01:04)
[2023-05-30] MEDS: Chlorhexidine MOUTHWASH 0.12% 15 ML UDC SWISH SPIT SCH ×5 (03:37→20:33)
[2023-05-30] MEDS: Pantoprazole VIAL 40 MG VIAL IV SCH (03:37)
[2023-05-30] MEDS: fentaNYL INFUSION 50 mcg/mL VL 2,500 MCG/50 ML VIAL IV SCH (03:55)
[2023-05-30 04:58] LABS: Hematocrit 31.2 % (35-45); Hemoglobin 10.3 g/dL (11.5-14.3); Mean Corpuscular Hemoglobin 28.7 pg (27-33); Mean Corpuscular Hgb Conc 33.1 g/dL (31-36); Mean Corpuscular Volume 86.7 fL (80-97); Mean Platelet Volume 9.2 fL (7.5-11.2); Platelet Count 126 10^3/uL (150-450); Red Blood Count 3.59 10^6/uL (3.63-4.92); Red Cell Distribution Width 14.6 % (12-17); White Blood Count 14.6 10^3/uL (3.8-11.8)
[2023-05-30] MEDS: Propofol 10 mg/ml 100 ML BTL 1,000 MG/100 ML BTL IV SCH ×4 (05:31→21:19)
[2023-05-30 06:15] LABS: Calcium 8.4 mg/dL (8.6-10.3); Creatinine, Serum 1.2 mg/dL (0.51-0.95); Magnesium 1.7 mg/dL (1.9-2.7); Phosphorus 2.5 mg/dL (2.5-5.0); Potassium 3.7 mmol/L (3.5-5.0); eGFR CKD-EPI 48.4 (>60)
[2023-05-30 07:30] LABS: ABS Eosinophils 0.3 10^3/uL (0.0-0.5); ABS Lymphocytes 1.8 10^3/uL (1.0-4.8); ABS Monocytes 1.8 10^3/uL (0.0-0.9); ABS Neutrophils 10.7 10^3/uL (1.5-7.6); ABS Nucleated RBC 0.06 10^3/ul; Lymphocyte % 12.1 %; Nucleated Red Blood Cells % 0.4 %/100WBC (0.0-0.8); RBC Morphology Normal (Normal); Smudge Cells Present
[2023-05-30] MEDS ORDERED: Potassium Chloride LIQUID 20 MEQ/15 ML LIQUID NG TUBE ONE (08:14)
[2023-05-30 08:57] LABS: Zinc Transporter 8 (ZnT8) Ab <15.0 U/mL (<15.0)
[2023-05-30] MEDS: Enoxaparin 100 MG/ML SYR SUBCUT SCH ×2 (09:18→23:03)
[2023-05-30] MEDS: cefTRIAXone 1 gm/50 mL D5W 1 GM/50 ML BAG IV SCH (09:18)
[2023-05-30] MEDS: Insulin GLARGINE 100 un/ml 10 ml VIAL SUBCUT SCH (20:33)
[2023-05-31] MEDS: Chlorhexidine MOUTHWASH 0.12% 15 ML UDC SWISH SPIT SCH ×5 (00:11→14:14)
[2023-05-31] MEDS: Propofol 10 mg/ml 100 ML BTL 1,000 MG/100 ML BTL IV SCH ×2 (03:11→08:59)
[2023-05-31] MEDS: Pantoprazole VIAL 40 MG VIAL IV SCH (03:12)
[2023-05-31 04:44] LABS: Hematocrit 30.5 % (35-45); Hemoglobin 9.8 g/dL (11.5-14.3); Mean Corpuscular Hemoglobin 28.2 pg (27-33); Mean Corpuscular Hgb Conc 32.3 g/dL (31-36); Mean Corpuscular Volume 87.4 fL (80-97); Mean Platelet Volume 9.1 fL (7.5-11.2); Platelet Count 134 10^3/uL (150-450); Red Blood Count 3.48 10^6/uL (3.63-4.92); Red Cell Distribution Width 14.8 % (12-17); White Blood Count 17.5 10^3/uL (3.8-11.8)
[2023-05-31 05:00] LABS: Calcium 8.4 mg/dL (8.6-10.3); Creatinine, Serum 1.22 mg/dL (0.51-0.95); Magnesium 1.6 mg/dL (1.9-2.7); Phosphorus 3.5 mg/dL (2.5-5.0); Potassium 3.7 mmol/L (3.5-5.0); eGFR CKD-EPI 47.4 (>60)
[2023-05-31 05:09] LABS: ABS Basophils 0.2 10^3/uL (0.0-0.1); ABS Eosinophils 0.6 10^3/uL (0.0-0.5); ABS Lymphocytes 2.1 10^3/uL (1.0-4.8); ABS Monocytes 2.3 10^3/uL (0.0-0.9); ABS Neutrophils 12.3 10^3/uL (1.5-7.6); ABS Nucleated RBC 0.09 10^3/ul; Eosinophil % 3.5 %; Lymphocyte % 12.1 %; Nucleated Red Blood Cells % 0.5 %/100WBC (0.0-0.8)
[2023-05-31] MEDS ORDERED: Magnesium Sulf 4 GM/100 ML IV 4,000 MG/100 ML BAG IVPB ONE (05:10)
[2023-05-31] MEDS: Norepinephrine 4 MG/250mL D5W 4,000 MCG/250 ML BAG IV SCH (07:21)
[2023-05-31] MEDS: fentaNYL INFUSION 50 mcg/mL VL 2,500 MCG/50 ML VIAL IV SCH (07:32)
[2023-05-31] MEDS: Enoxaparin 100 MG/ML SYR SUBCUT SCH (09:00)
[2023-05-31] MEDS: cefTRIAXone 1 gm/50 mL D5W 1 GM/50 ML BAG IV SCH (09:21)
[2023-05-31] MEDS ORDERED: Morphine 4 MG/ML VIAL (1 ml) ONE (10:25)
[2023-05-31] MEDS ORDERED: Albuterol/Ipratropium NEB.SOL (2.5/0.5 MG) 3 ML NEB.SOLN INH PRN (16:09)
[2023-05-31] MEDS ORDERED: LORazepam 2 mg VIAL 1 ml IV PUSH PRN ×2 (17:08→17:46)
[2023-05-31] MEDS ORDERED: Lorazepam PYXIS KEY PRN ×2 (17:08→17:46)
[2023-05-31] MEDS ORDERED: Morphine PCA ADULT 5 MG/ML 30 ML PCA SCH (17:15)
[2023-05-31] MEDS ORDERED: Atropine 1% (ORAL/SL) 15 ML BTL SL PRN (17:55)
[2023-05-31] MEDS ORDERED: Scopolamine 1 mg/72hr PATCH TRANSDERM SCH (18:00)
[2023-05-31 18:03] VITALS: BP 214/102
[2023-05-31 18:27] LABS: AGNA-1, CSF Negative (Negative); ANNA-1, CSF Negative (Negative); ANNA-2, CSF Negative (Negative); ANNA-3, CSF Negative (Negative); Amphiphysin Ab, CSF Negative (Negative); CRMP-5-IgG, CSF Negative (Negative); IFA Notes None.; PCA-1, CSF Negative (Negative); PCA-2, CSF Negative (Negative); PCA-Tr, CSF Negative (Negative)
== END 2023-05-31 20:44 | disposition expired | DRG 870 ==
LOC: ED 17:31 → EDHOLD 20:44 → SUATTDRO 20:44 → ICU 05-24 02:28
PROVIDERS: ADMIT Internal Medicine; ATTEND Student in an Organized Health Care Education/Training Program